=== PATIENT | male | born 1950 ===

== ENCOUNTER → 2019-03-04 | Outpatient (CLI) | payer MEDICARE, OTHER ==
--- NOTE | 2019-03-09 16:11 | CRLMR ---
DATE OF SERVICE: 03/04/19 CLINICAL DATA: LEFT SHOULDER PAIN, UNSPECIFIED CHRONICITY LEFT SHOULDER MRI: Routine MR protocol. No priors. The supraspinous tendon is abnormal. There is increased signal within it and it mildly swollen consistent with tendinitis. There is a full thickness partial width tear of the supraspinatus tendon also. The infraspinatus tendon appears intact. The teres minor tendon appears intact. The subscapularis tendon appears intact. There is abnormal signal within the intraarticular portion of the long head biceps tendon. I cannot exclude a partial tear. The short head biceps tendon appears intact. There are osteoarthritic changes of the AC joint. Mild impingement of the supraspinatus muscle and tendon. There is increased signal within the glenoid labrum, consistent with labral degeneration. There is abnormal signal within the anterior labrum suspicious for a small labral tear. No significant marrow signal abnormality. There is a small amount of fluid in the glenohumeral joint. There is a small amount of fluid in the subacromial subdeltoid bursa. No other significant findings. [id number] [facility]
== END ==
LOC: LB.MRI 09:52
PROVIDERS: ATTEND Physician Assistant
DX: M25.512 Pain in left shoulder (principal)
CPT/HCPCS: 73221-LT

== ENCOUNTER 2019-11-28 10:49 | Emergency (ER) | payer MEDICARE, OTHER ==
[2019-11-28] MEDS: Acetaminophen/HYDROcodone 325-5 MG Tab PO ONE (12:53)
--- NOTE | 2019-11-28 18:33 | CR ---
CLINICAL DATA: Injury. LEFT LOWER LEG, 28 NOVEMBER 2019: There is a nondisplaced oblique fracture through the medial malleolus of the distal tibia. There is a nondisplaced spiral fracture through the distal tibial diaphysis. No other acute abnormalities. There are plantar and posterior calcaneal spurs. There is calcification within the distal Achilles tendon. No other significant findings. Job: [id number] [facility]
[2019-11-29] MEDS: Acetaminophen/HYDROcodone 325-10 MG Tab ONE (08:35)
--- NOTE | 2019-12-08 10:02 | EDM.PDOC ---
ED HPI GENERAL MEDICAL PROBLEM - General Chief Complaint: Lower Extremity Injury/Pain Stated Complaint: FELL OFF LADDER Time Seen by Provider: 11/28/19 11:15 Source of Information: Reports: Patient History Limitations: Reports: No Limitations - History of Present Illness INITIAL COMMENTS - FREE TEXT/NARRATIVE: Patient fell off a ladder hitting LLE, denies any head trauma or any other injury. [place] a crack to LLE. Duration: Minutes: (45) Location: Reports: Lower Extremity, Left Quality: Reports: Ache, Throbbing Severity: Mild Improves with: Reports: None Worsens with: Reports: Movement Associated Symptoms: Reports: No Other Symptoms Left Lower Ankle Pain Score (Numeric/FACES): 10 - Related Data Allergies Allergy/AdvReac Type Severity Reaction Status Date / Time No Known Allergies Allergy Verified 11/28/19 11:19 Home Meds: Home Meds Acetaminophen/HYDROcodone [[place] 325-5 MG] 1 - 2 tab PO Q6H PRN #10 tab 11/28/19 [Rx] Aspirin 81 mg PO DAILY 11/28/19 [History] Escitalopram Oxalate [Lexapro] 5 mg PO DAILY 11/28/19 [History] Lisinopril/Hydrochlorothiazide [Lisinopril-Hctz 20-12.5 mg Tab] 1 tab PO DAILY 11/28/19 [History] Rosuvastatin Calcium 1 tab PO DAILY 11/28/19 [History] Turmeric 400 mg PO DAILY 11/28/19 [History] Past Medical History HEENT History: Reports: Impaired Vision Cardiovascular History: Reports: High Cholesterol, Hypertension Musculoskeletal History: Reports: Osteoarthritis Social & Family History - Tobacco Use Smoking Status *Q: Never Smoker Second Hand Smoke Exposure: No - Caffeine Use Caffeine Use: Reports: Coffee Review of Systems - Review of Systems Review Of Systems: See Below Constitutional: Reports: No Symptoms Eyes: Reports: No Symptoms Ears: Reports: No Symptoms Nose: Reports: No Symptoms Mouth/Throat: Reports: No Symptoms Respiratory: Reports: No Symptoms Cardiovascular: Reports: No Symptoms GI/Abdominal: Reports: No Symptoms Genitourinary: Reports: No Symptoms Musculoskeletal: Reports: Leg Pain Skin: Reports: No Symptoms Neurological: Reports: No Symptoms Psychiatric: Reports: No Symptoms ED EXAM, GENERAL - Physical Exam Exam: See Below Exam Limited By: No Limitations General Appearance: Alert, No Apparent Distress Ears: Normal External Exam Nose: Normal Inspection Throat/Mouth: Normal Voice Head: Atraumatic Neck: Normal Inspection, Non-Tender, Full Range of Motion Respiratory/Chest: No Respiratory Distress, Lungs Clear, Normal Breath Sounds, Chest Non-Tender Cardiovascular: Normal Peripheral Pulses, Regular Rate, Rhythm, No Edema, No JVD, No Murmur Peripheral Pulses: 3+: Radial (L), Radial (R), Popliteal (L), Popliteal (R), Posterior Tibial (L), Posterior Tibial (R), Dorsalis Pedis (L), Dorsalis Pedis (R) GI/Abdominal: Normal Bowel Sounds, Soft, Non-Tender Back Exam: Normal Inspection, Full Range of Motion Extremities: Normal Capillary Refill, Leg Pain Neurological: Alert, Oriented, No Motor/Sensory Deficits Psychiatric: Normal Affect, Normal Mood Skin Exam: Warm, Dry, Intact Course - Vital Signs Last Recorded V/S: Last Vital Signs Temp Pulse 64 11/28/19 11:10 Resp 16 11/28/19 11:10 BP 164/88 H 11/28/19 11:10 Pulse Ox 97 11/28/19 11:10 - Orders/Labs/Meds Meds: Medications Discontinued Medications Generic Name Dose Route Start Last Admin Trade Name Freq PRN Reason Stop Dose Admin Hydrocodone Bitart/Acetaminophen 2 tab 11/28/19 11:24 11/28/19 12:53 [place] 325-5 Mg PO 11/28/19 11:25 2 tab ONETIME ONE Administration Hydrocodone Bitart/Acetaminophen Confirm 11/28/19 12:55 11/29/19 08:35 [place] 325-10 Mg Administered 11/28/19 12:56 Not Given Dose 2 tab .ROUTE .STK-MED ONE Departure - Departure Time of Disposition: 13:16 (.) Disposition: Home, Self-Care 01 Condition: Good Clinical Impression: Fracture of tibia - Discharge Information *PRESCRIPTION DRUG MONITORING PROGRAM REVIEWED*: Not Applicable *COPY OF PRESCRIPTION DRUG MONITORING REPORT IN PATIENT MELLY: Not Applicable Prescriptions: Acetaminophen/HYDROcodone [[place] 325-5 MG] 1 - 2 tab PO Q6H PRN #10 tab PRN Reason: Pain Instructions: Tibial and Fibular Fractures, Tibial Fracture, Adult, [id number] Referrals: PCP,None [Primary Care Provider] - Additional Instructions: return to ED for any increased or new concerning symptoms. Follow up with Ortho in 4-5 days. Sepsis Event Note (ED) - Evaluation Sepsis Screening Result: No Definite Risk
== END 2019-11-28 13:16 | disposition home or self-care (01) ==
LOC: LB.ED 10:49
DX: S82.55XA Nondisplaced fracture of medial malleolus of left tibia, initial encounter for closed fracture (principal); S82.242A Displaced spiral fracture of shaft of left tibia, initial encounter for closed fracture; I10 Essential (primary) hypertension; E78.00 Pure hypercholesterolemia, unspecified; M19.90 Unspecified osteoarthritis, unspecified site; Z79.82 Long term (current) use of aspirin; Z79.899 Other long term (current) drug therapy; W11.XXXA Fall on and from ladder, initial encounter
CPT/HCPCS: 29515; 73590; 99283; A9270

== ENCOUNTER 2022-03-14 09:15 | Emergency (ER) | payer MEDICARE, OTHER | END 2022-03-14 11:08 | disposition home or self-care (01) | LOC: LB.ED 09:15 | DX: L03.116 Cellulitis of left lower limb (principal); I10 Essential (primary) hypertension; Z79.899 Other long term (current) drug therapy; Z79.82 Long term (current) use of aspirin | CPT/HCPCS: 99283 ==